=== PATIENT | male | born 1985 | race Two or more races ===

== ENCOUNTER 2017-12-12 04:57 | Emergency (ER) | payer OTHER ==
[~2017-12-12] VITALS: Ht 165.1 cm; Wt 54.4 kg
--- NOTE | 2017-12-12 05:09 | Emergency Room Report ---
History of Present Illness General Chief Complaint: Vomiting Source: Patient Present Illness HPI Patient presents with multiple episodes of vomiting while in [facility]. Apparently he had ingested a lot of alcohol. He was celebrating a friend's birthday. He was not suicidal or depressed. At this time he feels better and doesn't feel like he needs to throw up any more. Is brought in by [facility]. There is no access to [facility] at their station [facility]. The patient denies any medical problems. He denies fevers, chills, he last moved his bowels yesterday and there is no melena. When he vomited there is no evidence of blood but he could not see well and wasn't that observant. It didn' t taste like metal. The patient denies any cough or shortness of breath. There is no rash. No H/O seizures, PUD, pancreatitis, DTs. Allergies: Coded Allergies: No Known Allergies (Unverified , 12/12/17) Patient History Past Medical History: see triage record Social History: Reports: alcohol use Social History Narrative works in [employer] Reviewed Nursing Documentation: PMH: Agreed; PSxH: Agreed Nursing Documentation-PMH Past Medical History: No Stated History Review of Systems All Other Systems: negative except mentioned in HPI Physical Exam Vital Signs Date Time Temp Pulse Resp B/P (MAP) Pulse Ox O2 Delivery O2 Flow Rate FiO2 12/12/17 05:02 97.8 78 16 103/53 100 Room Air 97.9 Sp02 EP Interpretation: reviewed, normal General Appearance: well appearing, no apparent distress, GCS 15 Head: normocephalic Eyes: bilateral eye PERRL, bilateral eye Scleral Injection ENT: moist mucus membranes Neck: supple Respiratory: lungs clear, normal breath sounds Cardiovascular #1: regular rate, rhythm Cardiovascular #2: 2+ radial (R) Gastrointestinal: normal inspection, non tender, no mass, non-distended, decreased bowel sounds Musculoskeletal: back normal, gait/station normal, normal range of motion Neurologic: alert, oriented x3, other - no nystagmus, grossly normal Psychiatric: mood/affect normal, no suicidal/homicidal ideation, other - sleepy but standing and ambulatory Skin: normal inspection, warm/dry Medical Decision Making Diagnostic Impression: Primary Impression: Nausea & vomiting Qualified Codes: R11.2 - Nausea with vomiting, unspecified Additional Impression: Alcohol intoxication Qualified Codes: F10.929 - Alcohol use, unspecified with intoxication, unspecified ER Course Patient presents with vomiting after alcohol ingestion. Differential includes gastritis, adverse reaction to alcohol, occult poisoning amongst others. He is feeling better at this time and not nauseated. His vital signs are stable. Patient will be treated with Zofran and observation. No laboratory is indicated at this time. Released on OR. Patient vomited after Zofran administration orally. An IV is ordered and lab work and IV Pepcid and Zofran. Labs with normal CBC, CMP (sl elevated chloride), normal lipase. Patient improved but still sleepy. Signed out to Dr. Shelton. Laboratory Tests Test 12/12/17 05:55 White Blood Count 9.9 K/UL (4.8-10.8) Red Blood Count 5.10 M/UL (4.70-6.10) Hemoglobin 14.4 G/DL (14.2-18.0) Hematocrit 45.0 % (42.0-52.0) Mean Corpuscular Volume 88 FL (80-99) Mean Corpuscular Hemoglobin 28.3 PG (27.0-31.0) Mean Corpuscular Hemoglobin Concent 32.0 G/DL (32.0-36.0) Red Cell Distribution Width 12.1 % (11.6-14.8) Platelet Count 276 K/UL (150-450) Mean Platelet Volume 6.5 FL (6.5-10.1) Neutrophils (%) (Auto) % (45.0-75.0) Lymphocytes (%) (Auto) % (20.0-45.0) Monocytes (%) (Auto) % (1.0-10.0) Eosinophils (%) (Auto) % (0.0-3.0) Basophils (%) (Auto) % (0.0-2.0) Differential Total Cells Counted 100 Neutrophils % (Manual) 87 % (45-75) H Lymphocytes % (Manual) 9 % (20-45) L Monocytes % (Manual) 4 % (1-10) Eosinophils % (Manual) 0 % (0-3) Basophils % (Manual) 0 % (0-2) Band Neutrophils 0 % (0-8) Platelet Estimate Adequate Platelet Morphology Normal Red Blood Cell Morphology Normal Sodium Level 144 MMOL/L (136-145) Potassium Level 4.1 MMOL/L (3.5-5.1) Chloride Level 108 MMOL/L (98-107) H Carbon Dioxide Level 25 MMOL/L (21-32) Anion Gap 11 mmol/L (5-15) Blood Urea Nitrogen 17 mg/dL (7-18) Creatinine 0.9 MG/DL (0.55-1.30) Estimate Glomerular Filtration Rate > 60 mL/min (>60) Glucose Level 92 MG/DL (74-106) Calcium Level 8.8 MG/DL (8.5-10.1) Total Bilirubin 0.2 MG/DL (0.2-1.0) Aspartate Amino Transferase (AST) 33 U/L (15-37) Alanine Aminotransferase (ALT) 38 U/L (12-78) Alkaline Phosphatase 59 U/L (46-116) Total Protein 7.9 G/DL (6.4-8.2) Albumin 4.0 G/DL (3.4-5.0) Globulin 3.9 g/dL Albumin/Globulin Ratio 1.0 (1.0-2.7) Lipase 153 U/L (73-393) Last Vital Signs Date Time Temp Pulse Resp B/P (MAP) Pulse Ox O2 Delivery O2 Flow Rate FiO2 12/12/17 08:24 97.9 67 14 108/60 100 Room Air 97.9 Status: improved Disposition: HOME, SELF-CARE Condition: Improved Scripts Famotidine (PEPCID AC) 20 Mg Tablet 20 MG PO DAILY, #20 TAB Prov: Soto Cowatr M.D. 12/12/17 Ondansetron Odt* (ZOFRAN ODT*) 4 Mg Tab.rapdis 4 MG BC EVERY 8 HOURS, #4 TAB 0 Refills Prov: Soto Cowart M.D. 12/12/17 Soto Cowart M.D. Dec 12, 2017 05:09
[2017-12-12] MEDS ORDERED: ONDANSETRON ODT4 MG BC (06:10)
[2017-12-12] MEDS ORDERED: PEPCID AC20 M2 PO (06:10)
[2017-12-12 06:25] LABS: HEMOGLOBIN 14.4 G/DL (14.2-18.0); MEAN CORPUSCULAR VOLUME 88 FL (80-99); PLATELET COUNT 276 K/UL (150-450); RED CELL DISTRIBUTION WIDTH 12.1 % (11.6-14.8); WHITE BLOOD COUNT 9.9 K/UL (4.8-10.8)
[2017-12-12 06:52] LABS: ANION GAP 11 mmol/L (5-15); BLOOD UREA NITROGEN 17 mg/dL (7-18); CALCIUM 8.8 MG/DL (8.5-10.1); CARBON DIOXIDE 25 MMOL/L (21-32); CHLORIDE 108 MMOL/L (98-107); CREATININE 0.9 MG/DL (0.55-1.30); POTASSIUM 4.1 MMOL/L (3.5-5.1); SODIUM 144 MMOL/L (136-145)
[2017-12-12 06:58] LABS: ALANINE AMINOTRANSFERASE 38 U/L (12-78); ALKALINE PHOSPHATASE 59 U/L (46-116); ASPARTATE AMINO TRANSFERASE 33 U/L (15-37); BILIRUBIN,TOTAL 0.2 MG/DL (0.2-1.0)
[2017-12-12 08:24] VITALS: BP 108/60
[2017-12-12 09:45] VITALS: BP 108/60
== END 2017-12-12 09:47 | disposition home or self-care (01) ==
LOC: EMR 05:09
DX: R11.2 Nausea with vomiting, unspecified (principal); F10.929 Alcohol use, unspecified with intoxication, unspecified
CPT/HCPCS: 36415; 80053; 83690; 85007; 85025; 96360; 96374; 96375; 99284; J2405; S0028